=== PATIENT | female | born 1945 | race Caucasian/White ===

== ENCOUNTER 2022-06-02 10:12 | Emergency (ER) | payer MEDICARE ==
[~2022-06-02] VITALS: Ht 172.7 cm; Wt 81.6 kg
[2022-06-02 10:40] VITALS: BP 134/88
[2022-06-02] MEDS ORDERED: ACETAMINOPHEN WITH CODEINE 1 TAB TAB PO ONE (12:00)
[2022-06-02] MEDS ORDERED: ACET-2079 PO (12:59)
[2022-06-02] MEDS ORDERED: DOCU-116 PO (12:59)
== END 2022-06-02 13:10 | disposition home or self-care (01) ==
LOC: EDH 10:12
DX: S22.31XA Fracture of one rib, right side, initial encounter for closed fracture (principal); E78.00 Pure hypercholesterolemia, unspecified; I10 Essential (primary) hypertension; I48.91 Unspecified atrial fibrillation; Z85.118 Personal history of other malignant neoplasm of bronchus and lung; W18.39XA Other fall on same level, initial encounter; Y93.89 Activity, other specified; Y92.89 Other specified places as the place of occurrence of the external cause; Y99.8 Other external cause status
CPT/HCPCS: 71100; 73030